=== PATIENT | female | born 1990 | race Caucasian/White ===

== ENCOUNTER 2016-09-21 15:27 | Emergency (ER) | payer OTHER ==
[~2016-09-21 15:27] MED LIST: ACET-704 PO; CYCL10TA2 PO; METR500T PO; NAPR500T8 PO
[2016-09-21] MEDS ORDERED: IPRATRPIUM/ALBUTEROL 0.5/2.5MG 3 ML NEBU. NEB ONE (16:15)
[2016-09-21] MEDS ORDERED: IV NORMAL SALINE 1000ML BAG 1,000 ML IV ONE (16:15)
--- NOTE | 2016-09-21 16:25 | PHYS DOC ---
Past Medical History Past Medical History: Bipolar Past Surgical History: No Surgical History Alcohol Use: None Drug Use: None Adult General Chief Complaint Chief Complaint: vomiting, diarrhea, abdominal cramping HPI HPI Patient is a 26 year old female who presents by EMS from work. She has been working outside in the heat with heat index over 100. She said she suddenly began to feel terrible, she began to sweat profusely, she went into the bathroom and had vomiting and diarrhea. She still feels "sick" and has abdominal cramping. She believes that she is just overheated. She was feeling fine until this started. Patient does not believe she is . She has the control implant in her arm and is following up with her [facility] doctor because it is almost ready to be replaced. Review of Systems Review of Systems Constitutional: Denies fever or chills [] Eyes: Denies change in visual acuity, redness, or eye pain [] HENT: She has had a cough and postnasal drainage Respiratory: She has had a cough and somewhat short of breath at times Cardiovascular: As chest pain GI: As in history of present illness : Denies dysuria or hematuria [] Musculoskeletal: Denies back pain or joint pain [] Integument: Denies rash or skin lesions [] Neurologic: Denies headache, focal weakness or sensory changes [] Current Medications Current Medications Current Medications Medications (Trade) Dose Ordered Sig/Mario Start Time Stop Time Status Last Admin Dose Admin Albuterol/ Ipratropium (Duoneb) 3 ml 1X ONCE 09/21/16 16:15 09/21/16 16:16 DC 09/21/16 16:14 3 ML Sodium Chloride 1,000 ml @ 1,000 mls/hr 1X ONCE 09/21/16 16:15 09/21/16 17:14 DC 09/21/16 16:06 1,000 MLS/HR Allergies Allergies Allergies Coded Allergies Type Severity Reaction Last Updated Verified No Known Drug Allergies 02/15/16 No Physical Exam Physical Exam Constitutional: Well developed, well nourished, looks like she doesn't feel well , nondiaphoretic, vital signs stable HENT: Normocephalic, atraumatic, bilateral external ears normal, nose normal. [ ] Eyes: conjunctiva normal, no discharge. [] Neck: Normal range of motion, no stridor. [] Cardiovascular:Heart rate regular rhythm, no murmur [] Lungs & Thorax: Expiratory wheezes present throughout, good breath sounds bilaterally Abdomen: Bowel sounds normal, soft, no tenderness, no masses, no pulsatile masses. [] Skin: Warm, dry, no erythema, no rash. [] Extremities: No tenderness, no cyanosis, no clubbing, ROM intact, no edema. [] Neurologic: Alert and oriented X 3, normal motor function, normal sensory function, no focal deficits noted. [] Current Patient Data Vital Signs Vital Signs Date Time Temp Pulse Resp B/P (MAP) Pulse Ox O2 Delivery O2 Flow Rate FiO2 09/21/16 17:00 80 18 97/42 (60) 99 Room Air 09/21/16 15:27 98.4 98.4 Lab Values Laboratory Tests Test 09/21/16 14:47 POC Urine HCG, Qualitative Hcg negative (Negative) EKG EKG [] Radiology/Procedures Radiology/Procedures [] Course & Med Decision Making Course & Med Decision Making Pertinent Labs and Imaging studies reviewed. (See chart for details) Patient was brought by EMS and had 500 mL normal saline in route. When I saw her , she states "I'm ready to go home". I feel the patient would benefit from another liter of fluid and also breathing treatment and she is agreeable to that. The patient had a liter of normal saline in the ED and felt much better. She ambulated without difficulty. She also had a DuoNeb and stated that helped her breathing quite a bit. See instructions for plan. She was given a prescription for albuterol inhaler. [] Dragon Disclaimer Dragon Disclaimer This electronic medical record was generated, in whole or in part, using a voice recognition dictation system. Departure Departure Impression: Primary Impression: Heat exhaustion, unspecified, initial encounter Additional Impression: Dehydration Disposition: 01 HOME, SELF-CARE Condition: IMPROVED Referrals: UNKNOWN PCP NAME (PCP) Patient Instructions: Dehydration, Adult, [id number] Additional Instructions: When you're working in a hot environment, it's important to hydrate 24 hours a day. Drink plenty of fluids before work, during work, and after work in the evenings. Try to take breaks to cool off and also consider using a cold washcloth or towel on the back of your neck. Scripts Albuterol Sulfate (PROAIR HFA INHALER) 8.5 Gm Hfa.aer.ad 1 PUFF INH PRN Q6HRS Y for SHORTNESS OF BREATH for 14 Days, INHALER 0 Refills Prov: HUMBERTO GREGORY MD 09/21/16 Problem Qualifiers HUMBERTO GREGORY MD Sep 21, 2016 16:25
[2016-09-21 17:00] VITALS: BP 97/42
[2016-09-21] MEDS ORDERED: PROAIR HFA8.5 GM INH (17:35)
== END 2016-09-21 17:35 | disposition home or self-care (01) ==
LOC: ER 15:27
DX: T67.5XXA Heat exhaustion, unspecified, initial encounter (principal); E86.0 Dehydration; R10.9 Unspecified abdominal pain; F31.9 Bipolar disorder, unspecified; X58.XXXA Exposure to other specified factors, initial encounter; Y93.89 Activity, other specified; Y99.8 Other external cause status; Y92.89 Other specified places as the place of occurrence of the external cause
CPT/HCPCS: 81025; 94250; 94640; 96360; 99284; J7030; J7620